=== PATIENT | male | born 1965 | race Caucasian/White ===

== ENCOUNTER 2019-08-19 10:56 | Emergency (ER) | payer BC ==
[~2019-08-19] VITALS: Ht 182.9 cm; Wt 90.7 kg
[2019-08-19] MEDS ORDERED: NORCO 5-325 TA1 EAC1 PO (11:42)
[2019-08-19] MEDS ORDERED: ONDANSETRON HCL4 M2 PO (11:42)
[2019-08-19 12:35] VITALS: BP 136/94
== END 2019-08-19 12:36 | disposition home or self-care (01) ==
LOC: ER 10:56 → EDBD 10:56 → ER 12:36
DX: S61.213A Laceration without foreign body of left middle finger without damage to nail, initial encounter (principal); S61.217A Laceration without foreign body of left little finger without damage to nail, initial encounter; Z88.6 Allergy status to analgesic agent; W26.0XXA Contact with knife, initial encounter; Y93.89 Activity, other specified; Y92.89 Other specified places as the place of occurrence of the external cause; Y99.8 Other external cause status

== ENCOUNTER 2020-01-18 19:18 | Emergency (ER) | payer BC ==
[~2020-01-18] VITALS: Ht 182.9 cm; Wt 95.3 kg
[~2020-01-18 19:18] MED LIST: NORCO 5-325 TA1 EAC1 PO; ONDANSETRON HCL4 M2 PO
[2020-01-18 19:21] VITALS: BP 118/78
== END 2020-01-18 20:57 | disposition home or self-care (01) ==
LOC: ER 19:18
DX: S80.11XA Contusion of right lower leg, initial encounter (principal); Z88.5 Allergy status to narcotic agent; W21.03XA Struck by baseball, initial encounter; Y93.64 Activity, baseball; Y92.89 Other specified places as the place of occurrence of the external cause; Y99.8 Other external cause status